=== PATIENT | female | born 1990 | race Caucasian/White ===

== ENCOUNTER 2017-12-12 15:39 | Emergency (ER) | payer OTHER ==
[2017-12-12] MEDS: HYDROCODONE/APAP (5/325) TAB PO (16:48)
== END 2017-12-12 18:07 | disposition home or self-care (01) ==
LOC: FTE 15:39
DX: S50.812A Abrasion of left forearm, initial encounter (principal); V43.52XA Car driver injured in collision with other type car in traffic accident, initial encounter; Z87.891 Personal history of nicotine dependence
CPT/HCPCS: 29130; 72040; 73090; 73130-LT; 81025; 99284-25

== ENCOUNTER 2018-08-12 04:15 | Emergency (ER) | payer OTHER ==
[2018-08-12] MEDS: AZITHROMYCIN 500 MG TAB PO (05:40)
[2018-08-12] MEDS: CEFTRIAXONE 250 MG INJ IM (05:41)
[2018-08-12] MEDS: FLUCONAZOLE 150 MG TAB PO (05:42)
[2018-08-12 06:34] LABS: HEPATITIS B SURFACE ANTIGEN NEGATIVE (NEGATIVE)
[2018-08-12 06:51] LABS: HEPATITIS C VIRAL ANTIBODY NEGATIVE (NEGATIVE); HIV 1&2 ANTIBODY NEGATIVE (NEGATIVE)
[2018-08-12 06:52] LABS: HEPATITIS B SURFACE ANTIBODY POSITIVE (NEGATIVE)
[2018-08-12 17:43] LABS: RAPID PLASMA REAGIN NONREACTIVE (NR)
== END 2018-08-12 07:14 | disposition home or self-care (01) ==
LOC: FTE 07:14
DX: N89.8 Other specified noninflammatory disorders of vagina (principal); F17.210 Nicotine dependence, cigarettes, uncomplicated
CPT/HCPCS: 36415; 81025; 86592; 86703; 86706; 86803; 87340; 87591; 96372; 99284-25